=== PATIENT | male | born 1960 | race Caucasian/White ===

== ENCOUNTER 2024-10-29 10:04 | Emergency (ER) | payer SELFPAY ==
[2024-10-29 10:49] VITALS: BP 147/88; PULSE 66; RESP 16; TEMP 35.8; O2SAT 99
--- NOTE | 2024-10-29 11:03 | ED_ITS ---
HPI - General Adult General Chief complaint: Ear Stated complaint: L Ear Pain Time Seen by Provider: 10/29/24 11:03 Source: patient, RN notes reviewed and old records reviewed Mode of arrival: ambulatory Limitations: no limitations History of Present Illness HPI narrative: 64-year-old male presents to the [facility] with complaints of muffled hearing, erythema to the left ear, crusting. Tenderness pre-auricular Symptoms have been going on for approximately 3 weeks Onset (ago): week(s) (3) Treatments prior to arrival: other (Cleaning) Related Data Home Medications ?Medication ?Instructions ?Recorded ?Confirmed ?Last Taken ?Type adalimumab 40 mg/0.8 mL 40 mg subcut WEEKLY 10/29/24 10/29/24 Unknown History subcutaneous syringe kit (Humira) Allergies Allergy/AdvReac Type Severity Reaction Status Date / Time No Known Allergies Allergy Verified 10/29/24 11:06 Review of Systems Review of Systems: All systems reviewed & are unremarkable except as noted in HPI and below Constitutional: Constitutional: Reports no additional constitutional complaints ENT: Reports as per HPI and Reports otalgia (left ear) [facility] Past Medical History Medical History (Updated 10/29/24 @ 20:12 by Jemima Campa APRN) Psoriatic arthritis Comments At the time of my signature, I reviewed and agree with the nursing past medical, surgical, social, and family history. There is no relevant family history pertinent to the patient complaint. Exam Const: General: cooperative, healthy appearing, comfortable, no acute distress, well developed, alert and well nourished Nutritional Appearance: well nourished Orientation/consciousness: patient oriented x3 Limitations: no limitations HENMT: Head: normal to inspection Ears: Abnormal EAC present erythema on the left, external ear abnormal auricular tenderness and pain with movement of external ear, mastoid abnormal (Erythema, swelling without tenderness), periauricular adenopathy on the left, unable to visualize TM on the left and other (Significant erythema preauricular, postauricular, swelling noted) Face/Nose/Sinus: No nasal discharge present Mouth: Yes Normal oral and palatal mucosa present, Yes lip normal, Yes tongue normal and Yes moist mucous membranes Throat: posterior oropharynx normal, uvula midline and no uvular edema Eyes: General: appearance normal, both eyes and all related structures Alignment and Position: alignment normal Neck: Neck: normal visual inspection, full ROM, no lymphadenopathy and no meningeal signs Chest: Chest palpation & inspection: normal inspection of the chest Resp: Effort & Inspection: normal respiratory effort and able to speak in complete sentences Cardio: Rate: regular rate Neuro: General: patient oriented x3, gait normal, moves all extremities and no meningeal signs Cognition (Neuro): normal cognition Speech: normal speech Gait exam (Neuro): Normal gait present Extrem: General: normal to inspection, full ROM, capillary refill normal and normal gait Psych: Appearance: grossly normal and well kempt Mental Status: mental status grossly normal Speech and movement: Normal speech and movement present and Clear speech present Affect: normal affect Attitude: cooperative Course Course Emergency Course: Due to the extensiveness of the cellulitic changes of the left ear, advised patient to go to the ER which he is declining at this time. Would prefer to try an oral antibiotic. Could cause permanent issues with his ear Attempted to contact Dr. David goes office, due to no insurance unable to schedule appointment. Level of Care: Express Care Visit Vital Signs Vital signs: Vital Signs Temperature 96.5 F L 10/29/24 10:49 Pulse Rate 66 10/29/24 10:49 Respiratory Rate 16 10/29/24 10:49 Blood Pressure 147/88 H 10/29/24 10:49 Pulse Oximetry 99 10/29/24 10:49 Temperature 96.5 F L 10/29/24 10:49 Pulse Rate 66 10/29/24 10:49 Respiratory Rate 16 10/29/24 10:49 Blood Pressure 147/88 H 10/29/24 10:49 Pulse Oximetry 99 10/29/24 10:49 Reviewed Medical Decision Making MDM Narrative Medical decision making narrative: Patient sitting in exam room. Patient is nontoxic but vitals are stable. Patient presents with 3 week history of significant erythema, swelling to the left ear. Concern for abscess, significant cellulitis wanted to send patient to the ER after attempting to have seen at ENT. ENT unable to see patient due to insurance issue Patient is declining ER transfer, discussed risks of sepsis due to significant cellulitis however will cover with antibiotics. Discussed risks that oral antibiotics may not completely fix the ear and he needs follow-up. Patient signed AMA from clinic, will prescribe antibiotic. Discussed risks. All questions have been answered, and the patient deny any further questions with discharge and discharge plan. Some parts of this dictation were generated by voice recognition software and may contain typographical and/or grammatical inaccuracies. Differential Diagnosis Differential Diagnosis: Diffuse cellulitis left ear, otitis externa, fungal infection, sepsis, cellulitis Medical Records Medical records reviewed: Yes I reviewed the external patient's medical records. Vital Signs Vital Signs: Vital Signs Temperature 96.5 F L 10/29/24 10:49 Pulse Rate 66 10/29/24 10:49 Respiratory Rate 16 10/29/24 10:49 Blood Pressure 147/88 H 10/29/24 10:49 Pulse Oximetry 99 10/29/24 10:49 Temperature 96.5 F L 10/29/24 10:49 Pulse Rate 66 10/29/24 10:49 Respiratory Rate 16 10/29/24 10:49 Blood Pressure 147/88 H 10/29/24 10:49 Pulse Oximetry 99 10/29/24 10:49 Reviewed Lab Data Lab results reviewed: Yes I reviewed the patient's lab results. Labs: Reviewed Critical Care Time Critical Care Time Critical Care Time: No Discharge Plan Discharge Clinical Impression: Cellulitis of left ear Otitis externa Qualifiers: Otitis externa type: diffuse Chronicity: unspecified Laterality: left Qualified Code(s): H60.312 - Diffuse otitis externa, left ear Patient Disposition: Left Against Medical Advice Condition: Stable Instructions: Cellulitis (ED), Swimmer's Ear (ED) Additional Instructions: Symptoms do not change or get worse please go directly to the emergency room. Patient Language: Spanish Prescriptions: New clindamycin HCl [Cleocin HCl] 300 mg capsule 300 mg PO Q6H 10 Days Qty: 40 0RF ciprofloxacin HCl 0.3 % drops See Rx Instructions EACH EYE .COMPLEX Qty: 2.5 0RF Rx Instructions: Place 4 drops in left ear twice daily for 5 days clindamycin HCl [Cleocin HCl] 150 mg capsule 150 mg PO Q6H 10 Days Qty: 40 0RF No Action Humira 40 mg/0.8 mL syringe kit 40 mg subcut WEEKLY Follow-up/Referrals: Steven Westfall MD [Physician, Family Practice] PHYSICIAN,BRIM SETTER [Primary Care Provider, Internal Medicine] Time of Disposition: 11:55
== END 2024-10-29 11:55 | disposition left against medical advice (07) ==
PROVIDERS: Emergency Provider Nurse Practitioner
DX: H60.12 Cellulitis of left external ear (principal); H60.312 Diffuse otitis externa, left ear; L40.50 Arthropathic psoriasis, unspecified
CPT/HCPCS: 99213; G0463